=== PATIENT | female | born 1965 | race Caucasian/White ===

== ENCOUNTER 2019-10-06 11:36 | Outpatient (CLI) | payer MEDICARE, SELFPAY ==
--- NOTE | 2019-10-06 11:47 | US_ITS ---
WS: [id number] ULTRASOUND-GUIDED LEFT BREAST BIOPSY CLINICAL INFORMATION: LT BREAST MASS COMPARISON: None. FINDINGS: The procedure including risks, benefits, and complications were discussed with the patient who agreed to proceed. Using sterile technique patient was prepped and draped in the usual sterile fashion. Aft er 1% lidocaine utilizing real-time ultrasound guidance 5 14-gauge cores were obtained of the left br east lesion at the 3 o'clock position. Subsequently a titanium clip was placed in the biopsy cavity. No immediate complications. 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 Microcalcifications ident ified. US/[place] [id number] IMPRESSION: 1. Uncomplicated ultrasound-guided left breast biopsy. 2. The pathology demonstrates fibroadenoma BI-RADS: 2-Benign FOLLOW UP: 6 Month Follow-up
--- NOTE | 2019-10-06 11:47 | US_ITS ---
WS: [id number] ULTRASOUND-GUIDED RIGHT BREAST BIOPSY CLINICAL INFORMATION: RT BREAST MASS X 2 COMPARISON: None. FINDINGS: The procedure including risks, benefits, and complications were discussed with the patient who agreed to proceed. Using sterile technique patient was prepped and draped in the usual sterile fashion. Aft er 1% lidocaine utilizing real-time ultrasound guidance 5 14-gauge cores were obtained of the right b reast lesion at the 8 o'clock position. Subsequently a titanium clip was placed in the biopsy cavity. No immediate complications. Next the right breast lesion at the 10:00 position was localized. After 1% lidocaine using real-time ultrasound guidance 5 14-gauge cores were obtained of the right breast lesion. A titanium clip was pl aced. Pathology demonstrates 8:00 lesion: Benign fibroepithelial lesion most consistent with fibroadenoma. No malignancy. Right breast biopsy 10:00: Fibrocystic change with florid epithelial hyperplasia. Microcalcifications . No malignancy identified. 2. The pathology demonstrates fibroadenoma at the 8:00 position and fibrocystic change at the 10:00 position. No malignancy identified. US/[place] [id number] IMPRESSION: 1. Uncomplicated ultrasound-guided right breast biopsy. BI-RADS: 2-Benign FOLLOW UP: 6 Month Follow-up
[2019-10-06 12:30] LABS: INR 1.06 (0.8-1.2)
== END 2019-10-06 11:37 | disposition home or self-care (01) ==
LOC: RADSHAW 11:37
PROVIDERS: Family Provider Family Medicine; PCP Family Medicine; Visit Provider Surgery
DX: N63.20 Unspecified lump in the left breast, unspecified quadrant (principal); N63.13 Unspecified lump in the right breast, lower outer quadrant; N63.11 Unspecified lump in the right breast, upper outer quadrant; Z01.812 Encounter for preprocedural laboratory examination
CPT/HCPCS: 19083; 85610; 88305; J2001

== ENCOUNTER 2024-08-03 14:55 | Outpatient (CLI) | payer MEDICARE, SELFPAY ==
--- NOTE | 2024-08-03 14:59 | XR_ITS ---
WS: [id number] DEXA (DUAL ENERGY X-RAY ABSORPTIOMETRY) Bone mineral density was performed using a Myla machine. HISTORY: POSTMENOPAUSAL STATE COMPARISON: 06/19/2019 Lumbar spine BMD (L1-L4): 0.868 T score: -2.5 Z score: 1.0 Total hip BMD: Left: 0.781 g/cm2. T score: -1.8 Z score: -0.6 Right: 0.803 g/cm2. T score: -1.6 Z score: -0.4 10 year probability of a major osteoporotic fracture is 9.3%. Compared to the prior study from 06/19/2019. Lumbar spine bone mineral density has decreased by 17.6%. Bilateral hips bone mineral density has decreased by 8.8%. XR/XR DEXA axial skeleton* [id number] IMPRESSION: OSTEOPOROSIS based upon the WHO classification for females. Significant decrease in bone mineral density within both the lumbar spine and h ips since the prior study.
== END 2024-08-03 14:56 | disposition home or self-care (01) ==
LOC: RAD 14:57
PROVIDERS: Family Provider Family Medicine; PCP Nurse Practitioner Family; Visit Provider Nurse Practitioner Family
DX: Z13.820 Encounter for screening for osteoporosis (principal); Z78.0 Asymptomatic menopausal state; M81.0 Age-related osteoporosis without current pathological fracture
CPT/HCPCS: 77080

== ENCOUNTER 2024-08-07 10:00 | Outpatient (CLI) | payer MEDICARE, SELFPAY ==
--- NOTE | 2024-08-07 10:03 | CT_ITS ---
WS: [id number] LDCT LUNG CANCER SCREENING HISTORY: NICOTINE DEPENDENCE, CIGARETTES TECHNIQUE: Axial imaging performed from the apices to 1 cm below the costophrenic angles. Coronal and sagittal reformats are submitted with axial MIP series. All CT scans at [facility] use at least one of these dose optimization techniques: automated exposure control; mA and/or kV adjustment per patient size (includes targeted exams where dose is matched to clinical indication); or iterativ e reconstruction. DLP: 42.52 mGy.cm DIvol: Mean CTDIvol: 0.70 (mGy) COMPARISON: None available. Diagnostic quality: Satisfactory Lungs: Moderate pulmonary hyperexpansion. There are 2 nodules in the RIGHT upper lobe. The largest no dule with a mean diameter of 6 mm. Nodule is very slightly spiculated. There is an additional smaller 4 mm nodule at the RIGHT apex. No additional nodules. No mass or pneumonia. No endobronchial lesions . Heart: Normal size heart with no pericardial effusion.. Other findings: Mild atherosclerosis aorta. No adenopathy identified. Small hiatal hernia. Prior chol ecystectomy. Mild LEFT adrenal gland hyperplasia. CT/CT lung screening [id number] IMPRESSION: LUNG-RADS: 3-Probably Benign FOLLOW UP: 6 Month LDCT OTHER FINDINGS (S MODIFIER): None.
== END 2024-08-07 10:02 | disposition home or self-care (01) ==
PROVIDERS: Family Provider Family Medicine; PCP Nurse Practitioner Family; Visit Provider Nurse Practitioner Family
DX: Z12.2 Encounter for screening for malignant neoplasm of respiratory organs (principal); F17.210 Nicotine dependence, cigarettes, uncomplicated; R91.8 Other nonspecific abnormal finding of lung field; K44.9 Diaphragmatic hernia without obstruction or gangrene; Z90.49 Acquired absence of other specified parts of digestive tract
CPT/HCPCS: 71271

== ENCOUNTER 2025-03-11 09:31 | Outpatient (CLI) | payer MEDICARE, SELFPAY ==
--- NOTE | 2025-03-11 09:41 | XR_ITS ---
WS: [id number] Exam: XR lumbar spine 6V w f/e [id number] Date/Time of Exam: 03/11/2025 9:42 AM Reason For Exam: SPONDYLOSIS OF LUMBOSACRAL REGION W/OUT MYELOPAHTY Comparison 02/24/2018. No fracture or malalignment. Slight narrowing of the L1-2 and L4-5 disc with a mild spondylosis. Posterior elements are intact. No flexion or extension instability. Exaggerated lumbar lordosis. XR/XR lumbar spine 6V w f/e [id number] IMPRESSION: 1. Mild degenerative changes. 2. No flexion or extension instability.
== END 2025-03-11 09:32 | disposition home or self-care (01) ==
LOC: RAD 09:32
PROVIDERS: PCP Nurse Practitioner Family; Visit Provider Student in an Organized Health Care Education/Training Program
DX: M47.817 Spondylosis without myelopathy or radiculopathy, lumbosacral region (principal); M47.816 Spondylosis without myelopathy or radiculopathy, lumbar region; R93.7 Abnormal findings on diagnostic imaging of other parts of musculoskeletal system
CPT/HCPCS: 72114